=== PATIENT | female | born 1975 | race African-American/Black ===

== ENCOUNTER 2017-01-22 04:44 | Emergency (ER) | payer MEDICAID ==
[~2017-01-22] VITALS: Ht 172.7 cm; Wt 84.0 kg
[2017-01-22] MEDS ORDERED: AMLODIPINE 5MG TABLET PO ONE (06:15)
[2017-01-22 06:52] LABS: HCG SCREEN NEGATIVE
[2017-01-22 06:54] LABS: CARBON DIOXIDE 24 mEq/L (21-32); CHLORIDE 107 mEq/L (98-107)
[2017-01-22] MEDS ORDERED: CLONIDINE 0.1MG TABLET PO ONE (07:45)
[2017-01-22 09:10] VITALS: BP 180/108
== END 2017-01-22 09:47 | disposition home or self-care (01) ==
LOC: ER 04:44
DX: I16.0 Hypertensive urgency (principal); I10 Essential (primary) hypertension; R51 Headache; Z91.19 Patient's noncompliance with other medical treatment and regimen; F17.200 Nicotine dependence, unspecified, uncomplicated
CPT/HCPCS: 36415; 80048; 84703; 99284; Z7610

== ENCOUNTER 2017-09-06 11:12 | Emergency (ER) | payer MEDICAID ==
[~2017-09-06] VITALS: Ht 172.7 cm; Wt 84.0 kg
[2017-09-06 12:06] LABS: CLARITY URINE CLEAR (CLEAR); COLOR URINE YELLOW (YELLOW); KETONES URINE NEGATIVE (NEGATIVE); LEUKOCYTE ESTERASE URINE NEGATIVE (NEGATIVE); NITRITE URINE NEGATIVE (NEGATIVE); OCCULT BLOOD URINE 1+ (NEGATIVE); PROTEIN URINE NEGATIVE (NEGATIVE); SPECIFIC GRAVITY URINE 1.008 (1.005-1.030); UROBILINOGEN URINE 0.2 E.U./dL (0.2-1.0)
[2017-09-06] MEDS ORDERED: TRAMADOL 50MG TABLET PO ONE (12:45)
[2017-09-06] MEDS ORDERED: IBUPROFEN 600MG TABLET PO ONE (12:45)
[2017-09-06 14:15] VITALS: BP 168/101
== END 2017-09-06 14:41 | disposition home or self-care (01) ==
LOC: ER 12:11
DX: M54.5 Low back pain (principal); I10 Essential (primary) hypertension; F17.200 Nicotine dependence, unspecified, uncomplicated
CPT/HCPCS: 81003; 81025; 99283

== ENCOUNTER 2018-06-17 23:23 | Emergency (ER) | payer MEDICAID ==
[~2018-06-17] VITALS: Ht 172.7 cm; Wt 81.0 kg
[2018-06-18] MEDS ORDERED: KETOROLAC 30MG/ML VIAL IV STA (02:00)
[2018-06-18] MEDS ORDERED: SODIUM CHLORIDE 0.9% 1,000 ML IV ONE (02:00)
[2018-06-18 02:18] LABS: EOSINOPHILS % 1.7 % (0.0-5.0); HEMATOCRIT. 39.9 % (36.0-48.0); HEMOGLOBIN. 13.4 g/dL (12.0-16.0); LYMPHOCYTES % 18.2 % (20.0-50.0); MEAN CORPUSCULAR HEMOGLOBIN 29.9 pg (28.0-32.0); MEAN CORPUSCULAR VOLUME 89.1 fL (81.0-99.0); MEAN PLATELET VOLUME 8.4 fl (7.4-10.4); NEUTROPHILS % 72.1 % (40.0-76.0); PLATELET 278 x1000/uL (130-400); RED BLOOD CELL COUNT 4.48 mill/uL (4.2-5.4); RED CELL DISTRIBUTION WIDTH 13.6 % (11.6-14.6)
[2018-06-18 02:25] LABS: CHLORIDE 107 mEq/L (98-107)
[2018-06-18 05:55] VITALS: BP 164/95
[2018-06-18] MEDS ORDERED: IOHEXOL-350 100 ML BOTTLE ONE (06:20)
== END 2018-06-18 05:55 | disposition home or self-care (01) ==
LOC: ER 23:23
DX: R07.89 Other chest pain (principal); I10 Essential (primary) hypertension; F17.200 Nicotine dependence, unspecified, uncomplicated; Z98.890 Other specified postprocedural states
CPT/HCPCS: 36415; 71045; 71275; 80053; 81025; 84484; 85025; 85379; 93005; 96374; 99284; J1885; J7030; Q9967

== ENCOUNTER 2019-07-11 17:38 | Emergency (ER) | payer MEDICAID ==
[~2019-07-11] VITALS: Ht 172.7 cm; Wt 83.0 kg
[2019-07-11 22:33] LABS: BASOPHILS % 0.8 % (0.0-2.0); EOSINOPHILS % 0.8 % (0.0-5.0); HEMATOCRIT. 39.2 % (36.0-48.0); HEMOGLOBIN. 12.6 g/dL (12.0-16.0); LYMPHOCYTES % 21.7 % (20.0-50.0); MEAN CORPUSCULAR HEMOGLOBIN 26.6 pg (28.0-32.0); MEAN CORPUSCULAR VOLUME 82.8 fL (81.0-99.0); MEAN PLATELET VOLUME 9.2 fl (7.4-10.4); MONOCYTES % 6.6 % (2.0-8.0); NEUTROPHILS % 70.1 % (40.0-76.0); PLATELET 284 x1000/uL (130-400); RED BLOOD CELL COUNT 4.74 mill/uL (4.2-5.4); RED CELL DISTRIBUTION WIDTH 17.9 % (11.6-14.6)
[2019-07-11 22:36] LABS: CLARITY URINE CLOUDY (CLEAR); COLOR URINE YELLOW (YELLOW); KETONES URINE NEGATIVE (NEGATIVE); LEUKOCYTE ESTERASE URINE 1+ (NEGATIVE); NITRITE URINE NEGATIVE (NEGATIVE); OCCULT BLOOD URINE NEGATIVE (NEGATIVE); PROTEIN URINE NEGATIVE (NEGATIVE); SPECIFIC GRAVITY URINE 1.028 (1.005-1.030); UROBILINOGEN URINE 0.2 E.U./dL (0.2-1.0)
[2019-07-11 22:40] LABS: CHLORIDE 109 mEq/L (98-107)
[2019-07-12] MEDS ORDERED: CEPHALEXIN 250MG CAPSULE PO ONE (00:30)
[2019-07-12 01:02] VITALS: BP 168/90
[2019-07-12] MEDS ORDERED: LABETALOL HCL 300MG TABLET PO SCH (09:00)
== END 2019-07-12 01:05 | disposition home or self-care (01) ==
LOC: ER 17:38
DX: I10 Essential (primary) hypertension (principal); N39.0 Urinary tract infection, site not specified; E11.9 Type 2 diabetes mellitus without complications; F17.210 Nicotine dependence, cigarettes, uncomplicated; R20.0 Anesthesia of skin; Z91.14 Patient's other noncompliance with medication regimen; Z98.890 Other specified postprocedural states
CPT/HCPCS: 36415; 80053; 81003; 85025; 93005; 99284; 99406; Z7610